=== PATIENT | female | born 1980 | race Caucasian/White ===

== ENCOUNTER → 2020-05-03 | Day surgery (SDC) | payer OTHER ==
[~2020-05-03] MED LIST: COMBIGAN EYE DR10 ML OPHTHALMIC; CYMBALTA60 MG PO; GABAPENTIN600 M1 PO; HUMALOG100 UNIT/1 SUBQ; LANTUS SOL100 UNIT/1 SUBQ; LEVOTHYROXINE50 MCG PO; NITROSTAT0.4 MG SUBLING; NORCO 5-325 TA1 EAC2 PO; NORTRIPTYLINE H10 M1 PO; ONDANSETRON ODT8 MG PO; PRED FORTE 1% EY5 M1 LT. EYE; PROAIR HFA8.5 GM INH; ROSUVASTATIN CA40 MG PO; TRAZODONE HCL50 MG PO
--- NOTE | ~2020-05-03 | OP ---
[facility] [address] [place] [address] OPERATIVE REPORT Name: CORNEL WHITAKER Room: [facility].#: [id number] Admission: 05/03/20 Attend Phys: Russell Nolan Discharge: Date of : 76 Report #: [id number] THIS REPORT FOR: //name// cc: EB AKINS Physician not on staff ~ CC: EB Nolan Physician staff DATE OF SERVICE: 05/03/2020 PREOPERATIVE DIAGNOSIS: Gastroparesis with severe protein-calorie malnutrition. POSTOPERATIVE DIAGNOSIS: Gastroparesis with severe protein-calorie malnutrition. OPERATION: Laparoscopic jejunostomy. SURGEON: Russell Nolan MD ANESTHESIA: General. ESTIMATED BLOOD LOSS: Minimal. SPECIMEN: None. DESCRIPTION OF PROCEDURE: After informed consent was obtained, the patient was brought to the operating room and placed supine. SCDs were placed and working, preoperative antibiotics were administered, general anesthesia was induced. The abdomen was prepped and draped in the usual sterile fashion. A Veress needle was inserted in the left upper quadrant. Pneumoperitoneum was established. Left and right lower quadrant 5 mm trocars were placed under direct vision using a Visiport technique and under direct vision. The jejunum was identified. I marked off a section of jejunum approximately 20 cm from the ligament of Treitz. Three needles were placed through the skin in the left upper quadrant, which served as T-bar into the mall bowel and the T-bars were used to pull the small bowel up to the abdominal wall. Small bowel was cannulated with a Seldinger needle. Wire was placed. A dilator was placed. I then placed Que-Shay jejunostomy with a balloon into the jejunotomy. It was fed into the jejunum under direct vision. Balloon was insufflated with 30 mL of sterile water. The catheter was inside the bowel. I insufflated the catheter and this confirmed that it was in the bowel. The ports were then removed under direct vision. The skin was closed with 4-0 Monocryl. [place]isions [place] [address] OPERATIVE REPORT Name: CORNEL WHITAKER Room: [facility]#: [id number] Admission: 05/03/20 Attend Phys: Russell Nolan Discharge: Date of : 76 Report #: [id number] Steri-Strips and gauze. COMPLICATIONS: None. DISPOSITION: The patient was taken to recovery in satisfactory condition. By: [id number] Nolan MD /nt
[2020-05-03 06:37] LABS: HEMATOCRIT 39.1 % (37.0-47.0); MCH 30.3 pg (26.0-34.0); MCHC 33.3 g/dL (28.0-37.0); MCV 90.8 fL (80.0-100.0); MPV 7.6 fl. (7.2-11.1); RBC 4.3 mil/uL (4.20-5.00); RDW-CV 13.1 % (10.5-14.5); WBC 8.5 thou/uL (4.0-11.0)
[2020-05-03 06:42] LABS: CALCIUM 8.7 mg/dL (8.5-10.1); CREATININE 1.4 mg/dL (0.6-1.3); POTASSIUM 5.3 mmol/L (3.5-5.1)
== END | disposition home or self-care (01) ==
LOC: M.SUR 06:15
PROVIDERS: ATTEND Surgery
DX: K31.84 Gastroparesis (principal); E43 Unspecified severe protein-calorie malnutrition; Z88.0 Allergy status to penicillin; Z88.1 Allergy status to other antibiotic agents; Z88.8 Allergy status to other drugs, medicaments and biological substances; Z79.4 Long term (current) use of insulin; Z79.899 Other long term (current) drug therapy; Z20.828 Contact with and (suspected) exposure to other viral communicable diseases